=== PATIENT | female | born 1960 | race Caucasian/White ===

== ENCOUNTER 2018-11-28 16:07 | Inpatient (IN) | payer MEDICARE, MEDICAID ==
[~2018-11-28] VITALS: Ht 170.2 cm; Wt 119.3 kg
[~2018-11-28 16:07] MED LIST: GABA-529 PO
[2018-11-28] MEDS ORDERED: MORPHINE SULFATE 4 MG/ML CPJ (NOT FOR IM USE) IV STA (16:45)
[2018-11-28] MEDS ORDERED: LEVETIRACETAM 1000MG/100ML 100 ML IV ONE (16:45)
[2018-11-28] MEDS ORDERED: ONDANSETRON HCL 4MG/2ML INJ IV STA (16:45)
[2018-11-28] MEDS ORDERED: KETOROLAC 30MG/ML VIAL IV STA (16:45)
[2018-11-28] MEDS ORDERED: SODIUM CHLORIDE 0.9% 1,000 ML IV ONE (16:45)
[2018-11-28 17:28] LABS: BASOPHILS % 0.4 % (0.0-2.0); EOSINOPHILS % 0.7 % (0.0-5.0); HEMATOCRIT. 49.2 % (36.0-48.0); HEMOGLOBIN. 16.7 g/dL (12.0-16.0); LYMPHOCYTES % 22.5 % (20.0-50.0); MEAN CORPUSCULAR HEMOGLOBIN 32.8 pg (28.0-32.0); MEAN CORPUSCULAR VOLUME 96.8 fL (81.0-99.0); MEAN PLATELET VOLUME 9.2 fl (7.4-10.4); MONOCYTES % 5.8 % (2.0-8.0); NEUTROPHILS % 70.6 % (40.0-76.0); PLATELET 196 x1000/uL (130-400); RED BLOOD CELL COUNT 5.08 mill/uL (4.2-5.4); RED CELL DISTRIBUTION WIDTH 15.6 % (11.6-14.6)
[2018-11-28 17:34] LABS: CHLORIDE 106 mEq/L (98-107)
[2018-11-28 17:38] LABS: ETHANOL BLOOD < 10 mg/dL
[2018-11-28] MEDS ORDERED: IOHEXOL-300 100 ML BOTTLE ONE (18:33)
[2018-11-28] MEDS ORDERED: FENTANYL CITRATE/PF 50MCG/ML 2ML VIAL IV NR (19:00)
[2018-11-28] MEDS ORDERED: HYDROMORPHONE HCL/PF 2MG/ML CPJ IV ONE (20:00)
[2018-11-28] MEDS ORDERED: ONDANSETRON HCL 4MG/2ML INJ IV ONE (22:00)
[2018-11-29] VITALS (7 sets, daily range): BP systolic 136–164; BP diastolic 70–98
[2018-11-29] MEDS: MORPHINE SULFATE 2 MG/ML CPJ (NOT FOR IM USE) IV PRN ×3 (03:47→13:12)
[2018-11-29] MEDS: HYDROCODONE/ACETAMINOPHEN 5/325MG TABLET PO PRN ×3 (05:47→20:19)
[2018-11-29 07:08] LABS: HEMATOCRIT 40.9 % (36.0-48.0); HEMOGLOBIN 13.8 g/dL (12.0-16.0); MEAN CORPUSCULAR HEMOGLOBIN 32.5 pg (28.0-32.0); MEAN CORPUSCULAR VOLUME 96.2 fL (81.0-99.0); PLATELET 154 x1000/uL (130-400); RED BLOOD CELL COUNT 4.25 mill/uL (4.2-5.4); RED CELL DISTRIBUTION WIDTH 15.3 % (11.6-14.6)
[2018-11-29 07:51] LABS: CHLORIDE 108 mEq/L (98-107)
[2018-11-29] MEDS ORDERED: PHENOBARBITAL 60MG TABLET PO SCH (13:00)
[2018-11-29] MEDS: PHENOBARBITAL 60MG TABLET PO SCH (13:47)
[2018-11-29] MEDS: MORPHINE SULFATE 4 MG/ML CPJ (NOT FOR IM USE) IV PRN ×2 (17:26→21:28)
[2018-11-29] MEDS: PHENOBARBITAL 100MG TABLET PO SCH (17:47)
[2018-11-29 17:49] LABS: BASOPHILS % 0.2 % (0.0-2.0); EOSINOPHILS % 1.2 % (0.0-5.0); HEMOGLOBIN. 14.1 g/dL (12.0-16.0); LYMPHOCYTES % 27.9 % (20.0-50.0); MEAN CORPUSCULAR HEMOGLOBIN 31.8 pg (28.0-32.0); MEAN CORPUSCULAR VOLUME 96.9 fL (81.0-99.0); MEAN PLATELET VOLUME 9.4 fl (7.4-10.4); MONOCYTES % 9.4 % (2.0-8.0); NEUTROPHILS % 61.3 % (40.0-76.0); PLATELET 156 x1000/uL (130-400); RED BLOOD CELL COUNT 4.44 mill/uL (4.2-5.4); RED CELL DISTRIBUTION WIDTH 15.3 % (11.6-14.6)
[2018-11-29] MEDS ORDERED: ACETAMINOPHEN 650MG/20.3ML UDC GT PRN (18:00)
[2018-11-29] MEDS ORDERED: ONDANSETRON HCL 4MG/2ML INJ IV PRN (18:00)
[2018-11-29] MEDS ORDERED: MAGNESIUM/ALUMINUM HYDROXIDE/SIMETHICONE 30ML UDC PO PRN (18:00)
[2018-11-29] MEDS ORDERED: GUAIFENESIN 200MG/10ML SUGAR FREE UDC PO PRN (18:00)
[2018-11-29] MEDS ORDERED: DIPHENHYDRAMINE 50MG/ML VIAL IV PRN (18:00)
[2018-11-29] MEDS ORDERED: NA PHOS,M-B/NA PHOS,DI-BA ENEMA 118ML PR PRN (18:00)
[2018-11-29] MEDS ORDERED: ACETAMINOPHEN 325MG TABLET PO PRN (18:00)
[2018-11-29] MEDS ORDERED: DOCUSATE SODIUM 100MG CAPSULE PO PRN (18:00)
[2018-11-29] MEDS ORDERED: ACETAMINOPHEN 650MG SUPP PR PRN (18:00)
[2018-11-29] MEDS ORDERED: CLONIDINE 0.1MG TABLET PO PRN (18:00)
[2018-11-29] MEDS ORDERED: SODIUM CHLORIDE 0.45% 1,000 ML IV SCH (20:15)
[2018-11-29] MEDS: SODIUM CHLORIDE 0.9% INJ 3ML FLUSH IVF SCH (21:28)
[2018-11-29] MEDS ORDERED: BISACODYL 5MG TABLET PO PRN (21:45)
[2018-11-29] MEDS: DOCUSATE SODIUM 100MG CAPSULE PO SCH (22:28)
[2018-11-29] MEDS ORDERED: ZOLPIDEM TARTRATE 5MG TABLET PO PRN (23:30)
[2018-11-30] VITALS: BP 159/88
[2018-11-30] MEDS: MORPHINE SULFATE 4 MG/ML CPJ (NOT FOR IM USE) IV PRN ×4 (02:40→20:19)
[2018-11-30] MEDS: IPRATROPIUM/ALBUTEROL 0.5-3(2.5)MG/3ML NEB NEB PRN ×5 (02:58→21:35)
[2018-11-30 04:00] VITALS: BP 146/88
[2018-11-30] MEDS: SODIUM CHLORIDE 0.9% INJ 3ML FLUSH IVF SCH ×2 (06:17→14:32)
[2018-11-30 07:35] LABS: BASOPHILS % 0.1 % (0.0-2.0); EOSINOPHILS % 0.5 % (0.0-5.0); HEMATOCRIT. 40.4 % (36.0-48.0); HEMOGLOBIN. 13.3 g/dL (12.0-16.0); LYMPHOCYTES % 16.2 % (20.0-50.0); MEAN CORPUSCULAR VOLUME 96.8 fL (81.0-99.0); MEAN PLATELET VOLUME 9.4 fl (7.4-10.4); MONOCYTES % 8.1 % (2.0-8.0); NEUTROPHILS % 75.1 % (40.0-76.0); PLATELET 152 x1000/uL (130-400); RED BLOOD CELL COUNT 4.17 mill/uL (4.2-5.4); RED CELL DISTRIBUTION WIDTH 15.2 % (11.6-14.6)
[2018-11-30 08:42] LABS: CHLORIDE 110 mEq/L (98-107)
[2018-11-30 08:49] LABS: HDL CHOLESTEROL 41 mg/dL (40-59)
[2018-11-30 08:54] LABS: LDL CHOLESTEROL 107 mg/dL (5-100)
[2018-11-30] MEDS: DOCUSATE SODIUM 100MG CAPSULE PO SCH ×2 (08:55→17:47)
[2018-11-30] MEDS: LEVETIRACETAM 500MG TABLET PO SCH ×2 (08:55→20:20)
[2018-11-30] MEDS ORDERED: ENOXAPARIN 30MG/0.3ML SYR SUBCUT SCH (09:00)
[2018-11-30] MEDS: PHENOBARBITAL 60MG TABLET PO SCH (09:00)
[2018-11-30] MEDS ORDERED: ENOXAPARIN 40MG/0.4ML SYR SUBCUT SCH (09:00)
[2018-11-30 12:00] VITALS: BP 142/80
[2018-11-30] MEDS: HYDROCODONE/ACETAMINOPHEN 5/325MG TABLET PO PRN (14:25)
[2018-11-30 16:00] VITALS: BP 141/93
[2018-11-30] MEDS: PHENOBARBITAL 100MG TABLET PO SCH (17:47)
[2018-11-30 20:00] VITALS: BP 102/89
[2018-11-30] MEDS: METOPROLOL TARTRATE 25MG TABLET PO SCH (20:20)
[2018-11-30 22:14] LABS: BG BASE EXCESS -2.7 mmol/L (-2.0-2.0); BG CARBOXYHEMOGLOBIN 1.6 % (0.5-1.5); BG DEOXYHEMOGLOBIN 12.6 % (0.0-5.0); BG FRACTION INSPIRED OXYGEN 21; BG HCO3 ACT 21.1 mmol/L (22.0-26.0); BG METHEMOGLOBIN 0.2 % (0.0-1.5); BG OXYGEN SATURATION 87.2 % (92.0-98.5); BG OXYHEMOGLOBIN 85.6 % (94.0-97.0); BG PCO2 33.8 mmHg (35.0-45.0); BG PH 7.413 (7.350-7.450); BG PO2 58.9 mmHg (75.0-100.0); BG SAMPLE SITE RIGHT RADIAL; BG TOTAL HEMOGLOBIN 14.1 g/dL (12.0-18.0); BG VENT MODE ROOM AIR
[2018-11-30 23:45] LABS: CLARITY URINE CLEAR (CLEAR); COLOR URINE YELLOW (YELLOW); KETONES URINE NEGATIVE (NEGATIVE); LEUKOCYTE ESTERASE URINE TRACE (NEGATIVE); NITRITE URINE NEGATIVE (NEGATIVE); OCCULT BLOOD URINE NEGATIVE (NEGATIVE); PH URINE 6.5 (4.5-8.0); PROTEIN URINE NEGATIVE (NEGATIVE); SPECIFIC GRAVITY URINE 1.016 (1.005-1.030); UROBILINOGEN URINE 0.2 E.U./dL (0.2-1.0)
[2018-12-01] VITALS: BP 141/83
[2018-12-01] MEDS: ALBUTEROL (0.083%) 2.5MG/3ML NEB HHN SCH ×2 (00:22→20:44)
[2018-12-01 00:53] LABS: *BARBITURATES SCREEN URINE PRESUMTIVE POSITIVE (NEGATIVE)
[2018-12-01 00:54] LABS: *AMPHETAMINES SCREEN URINE NEGATIVE (NEGATIVE); *BENZODIAZEPINES SCREEN URINE NEGATIVE (NEGATIVE); *COCAINE SCREEN URINE NEGATIVE (NEGATIVE); METHADONE URINE SCREEN NEGATIVE (NEGATIVE); OPIATES URINE SCREEN PRESUMTIVE POSITIVE (NEGATIVE); PHENCYCLIDINE URINE SCREEN NEGATIVE (NEGATIVE)
[2018-12-01 00:55] LABS: CANNABINOID URINE SCREEN PRESUMTIVE POSITIVE (NEGATIVE)
[2018-12-01] MEDS: MORPHINE SULFATE 4 MG/ML CPJ (NOT FOR IM USE) IV PRN ×5 (01:27→20:02)
[2018-12-01] MEDS: IPRATROPIUM/ALBUTEROL 0.5-3(2.5)MG/3ML NEB NEB PRN ×3 (03:07→17:18)
[2018-12-01 04:00] VITALS: BP 173/97
[2018-12-01] MEDS: OXYCODONE HCL/ACETAMINOPHEN 5/325MG TABLET PO PRN ×5 (04:09→22:01)
[2018-12-01 08:00] VITALS: BP 145/80
[2018-12-01] MEDS: DOCUSATE SODIUM 100MG CAPSULE PO SCH ×2 (08:01→17:47)
[2018-12-01] MEDS: LEVETIRACETAM 500MG TABLET PO SCH ×2 (08:02→21:05)
[2018-12-01] MEDS: METOPROLOL TARTRATE 25MG TABLET PO SCH ×2 (08:04→21:05)
[2018-12-01] MEDS: PHENOBARBITAL 60MG TABLET PO SCH (10:32)
[2018-12-01 12:00] VITALS: BP_SYST 105; BP_SYST 156; BP_DIAS 61; BP_DIAS 80
[2018-12-01 16:00] VITALS: BP 148/79
[2018-12-01] MEDS: PHENOBARBITAL 100MG TABLET PO SCH (17:47)
[2018-12-01 20:00] VITALS: BP 153/87
[2018-12-01] MEDS: SODIUM CHLORIDE 0.9% INJ 3ML FLUSH IVF SCH (20:02)
[2018-12-02] VITALS: BP 123/88
[2018-12-02] MEDS: MORPHINE SULFATE 4 MG/ML CPJ (NOT FOR IM USE) IV PRN ×7 (00:14→22:59)
[2018-12-02] MEDS: ALBUTEROL (0.083%) 2.5MG/3ML NEB HHN SCH ×6 (00:42→20:30)
[2018-12-02] MEDS: OXYCODONE HCL/ACETAMINOPHEN 5/325MG TABLET PO PRN ×5 (02:01→17:58)
[2018-12-02 04:00] VITALS: BP 136/82
[2018-12-02] MEDS: SODIUM CHLORIDE 0.9% INJ 3ML FLUSH IVF SCH ×2 (05:55→22:44)
[2018-12-02] MEDS: LEVETIRACETAM 500MG TABLET PO SCH ×2 (07:56→20:49)
[2018-12-02] MEDS: PHENOBARBITAL 60MG TABLET PO SCH (07:56)
[2018-12-02] MEDS: DOCUSATE SODIUM 100MG CAPSULE PO SCH ×2 (07:56→17:56)
[2018-12-02] MEDS: METOPROLOL TARTRATE 25MG TABLET PO SCH ×2 (07:57→20:49)
[2018-12-02 08:00] VITALS: BP 139/72
[2018-12-02 12:00] VITALS: BP_SYST 145; BP_SYST 154; BP_DIAS 82; BP_DIAS 98
[2018-12-02] MEDS: PHENOBARBITAL 100MG TABLET PO SCH (17:56)
[2018-12-02 20:00] VITALS: BP 116/92
[2018-12-02] MEDS: GUAIFENESIN 600MG ER TABLET PO SCH (20:48)
[2018-12-03] VITALS: BP 137/83
[2018-12-03] MEDS: MORPHINE SULFATE 4 MG/ML CPJ (NOT FOR IM USE) IV PRN ×4 (02:13→11:18)
[2018-12-03] MEDS: ALBUTEROL (0.083%) 2.5MG/3ML NEB HHN SCH ×4 (02:15→20:55)
[2018-12-03 04:00] VITALS: BP 119/73
[2018-12-03] MEDS: SODIUM CHLORIDE 0.9% INJ 3ML FLUSH IVF SCH ×3 (05:00→22:00)
[2018-12-03 08:00] VITALS: BP 138/88
[2018-12-03] MEDS: METOPROLOL TARTRATE 25MG TABLET PO SCH ×2 (08:09→20:52)
[2018-12-03] MEDS: LEVETIRACETAM 500MG TABLET PO SCH ×2 (08:09→20:52)
[2018-12-03] MEDS: GUAIFENESIN 600MG ER TABLET PO SCH ×2 (08:09→20:52)
[2018-12-03] MEDS: PHENOBARBITAL 60MG TABLET PO SCH (08:09)
[2018-12-03] MEDS: DOCUSATE SODIUM 100MG CAPSULE PO SCH ×2 (08:09→16:46)
[2018-12-03 12:38] VITALS: BP 151/86
[2018-12-03 16:11] VITALS: BP 160/90
[2018-12-03] MEDS: TRAMADOL 50MG TABLET PO PRN (16:46)
[2018-12-03] MEDS: PHENOBARBITAL 100MG TABLET PO SCH (16:46)
[2018-12-03 20:16] VITALS: BP 143/78
[2018-12-03] MEDS: OXYCODONE HCL 10MG TABLET SR 12HR PO SCH (20:55)
[2018-12-04] VITALS: BP 97/63
[2018-12-04] MEDS: TRAMADOL 50MG TABLET PO PRN (00:21)
[2018-12-04] MEDS: IPRATROPIUM/ALBUTEROL 0.5-3(2.5)MG/3ML NEB NEB PRN (00:28)
[2018-12-04] MEDS: ALBUTEROL (0.083%) 2.5MG/3ML NEB HHN SCH ×2 (03:10→09:44)
[2018-12-04 04:00] VITALS: BP 97/56
[2018-12-04] MEDS ORDERED: OXYCODONE HCL 10MG TABLET SR 12HR PO SCH (05:44)
[2018-12-04] MEDS: SODIUM CHLORIDE 0.9% INJ 3ML FLUSH IVF SCH (05:59)
[2018-12-04 08:00] VITALS: BP 124/76
[2018-12-04] MEDS: DOCUSATE SODIUM 100MG CAPSULE PO SCH (09:00)
[2018-12-04] MEDS: METOPROLOL TARTRATE 25MG TABLET PO SCH (09:00)
[2018-12-04] MEDS: GUAIFENESIN 600MG ER TABLET PO SCH (09:00)
[2018-12-04] MEDS: LEVETIRACETAM 500MG TABLET PO SCH (09:00)
[2018-12-04 09:40] VITALS: BP 124/76
[2018-12-04] MEDS: PHENOBARBITAL 60MG TABLET PO SCH (09:40)
[2018-12-04] MEDS: OXYCODONE HCL 10MG TABLET SR 12HR PO SCH (09:40)
== END 2018-12-04 11:45 | disposition home or self-care (01) | DRG 199 ==
LOC: ER 16:07 → 7WST 21:00 → EDBEDREQTM 21:03 → EDBEDREQ 21:03 → ENRESERV 22:31
PROVIDERS: ADMIT Internal Medicine Cardiovascular Disease; ATTEND Internal Medicine Cardiovascular Disease
DX: S27.0XXA Traumatic pneumothorax, initial encounter (principal); J96.00 Acute respiratory failure, unspecified whether with hypoxia or hypercapnia; S22.31XA Fracture of one rib, right side, initial encounter for closed fracture; S22.21XA Fracture of manubrium, initial encounter for closed fracture; J98.11 Atelectasis; Z68.41 Body mass index [BMI] 40.0-44.9, adult; E66.01 Morbid (severe) obesity due to excess calories; S02.2XXA Fracture of nasal bones, initial encounter for closed fracture; X58.XXXA Exposure to other specified factors, initial encounter; S20.01XA Contusion of right breast, initial encounter; F12.90 Cannabis use, unspecified, uncomplicated; G40.909 Epilepsy, unspecified, not intractable, without status epilepticus; S20.212A Contusion of left front wall of thorax, initial encounter; F17.210 Nicotine dependence, cigarettes, uncomplicated; F60.9 Personality disorder, unspecified; I10 Essential (primary) hypertension; J44.9 Chronic obstructive pulmonary disease, unspecified; K57.30 Diverticulosis of large intestine without perforation or abscess without bleeding; Z80.49 Family history of malignant neoplasm of other genital organs; Z91.19 Patient's noncompliance with other medical treatment and regimen; Y93.89 Activity, other specified; V89.2XXA Person injured in unspecified motor-vehicle accident, traffic, initial encounter; Y92.89 Other specified places as the place of occurrence of the external cause; Y99.8 Other external cause status; Z88.6 Allergy status to analgesic agent; Z88.8 Allergy status to other drugs, medicaments and biological substances
CPT/HCPCS: 36415; 36600; 70486; 71045; 71046; 71260; 74177; 80048; 80061; 80076; 80184; 80305; 80320; 81003; 82375; 82805; 83735; 84484; 85027; 93005; 93306; 93970; 94640; 96374; 97162; 99285; J1170; J1200; J1650; J1885; J1953; J2270; J2405; J3010; J7030; J7611; J7620; Q9967; G0480